=== PATIENT | male | born 1960 | race Caucasian/White ===

== ENCOUNTER → 2017-10-06 16:32 | Outpatient (REF) | payer BC, SELFPAY ==
[2017-10-06 22:09] LABS: Anion Gap 9.5 mmol/L (3-11); BUN 17 mg/dL (7-18); CO2 28.5 mmol/L (21.0-32.0); CREATININE 1.28 mg/dL (0.70-1.30); Calcium 8.7 mg/dL (8.5-10.1); Chloride 104 mmol/L (98-107); Estimated GFR 58.35 (mL/min/1.73m2); Glucose 82 mg/dL (70-100); Sodium 142 mmol/L (136-145); TSH (W/Ref FT4) 3.27 uIU/mL (0.358-3.74)
[2017-10-08 09:30] LABS: PSA, Screening 0.7 ng/ml (0-3.5)
== END ==
LOC: NCHCN 16:32
PROVIDERS: PCP Internal Medicine; Visit Provider Internal Medicine
DX: I10 Essential (primary) hypertension (principal); E03.9 Hypothyroidism, unspecified; K21.9 Gastro-esophageal reflux disease without esophagitis; Z12.5 Encounter for screening for malignant neoplasm of prostate; Z80.42 Family history of malignant neoplasm of prostate
CPT/HCPCS: 80048; 84153; 84443

== ENCOUNTER 2018-09-11 15:54 | Outpatient (REF) | payer BC, SELFPAY ==
[2018-09-11 21:57] LABS: Anion Gap 6.8 mmol/L (3-11); BUN 14 mg/dL (7-18); CO2 30.2 mmol/L (21.0-32.0); CREATININE 1.09 mg/dL (0.70-1.30); Calcium 8.7 mg/dL (8.5-10.1); Calculated LDL 91 mg/dL; Chloride 106 mmol/L (98-107); Cholesterol 158 mg/dL (50-200); Glucose 83 mg/dL (70-100); HDL Cholesterol 53 mg/dL (40-60); Potassium 4.6 mmol/L (3.5-5.1); Sodium 143 mmol/L (136-145); TSH 0.23 uIU/mL (0.358-3.74); Triglyceride 74 mg/dL (30-150)
== END 2018-09-11 16:14 ==
LOC: NCHCN 15:54
PROVIDERS: PCP Internal Medicine; Visit Provider Internal Medicine
DX: E03.9 Hypothyroidism, unspecified (principal); I10 Essential (primary) hypertension; K21.9 Gastro-esophageal reflux disease without esophagitis; Z80.42 Family history of malignant neoplasm of prostate
CPT/HCPCS: 80048; 80061; 83721; 84443

== ENCOUNTER 2019-06-21 09:29 | Outpatient (REF) | payer BC, SELFPAY | END 2019-06-21 09:49 | LOC: NCHCN 09:29 | PROVIDERS: PCP Internal Medicine; Visit Provider Internal Medicine | DX: E03.9 Hypothyroidism, unspecified (principal) | CPT/HCPCS: 84443 ==

== ENCOUNTER 2019-09-08 07:58 | Outpatient (REF) | payer OTHER, SELFPAY ==
[2019-09-08 22:05] LABS: Anion Gap 8.9 mmol/L (3-11); BUN 21 mg/dL (7-18); CO2 28.1 mmol/L (21.0-32.0); CREATININE 1.09 mg/dL (0.70-1.30); Calcium 8.7 mg/dL (8.5-10.1); Chloride 104 mmol/L (98-107); Glucose 99 mg/dL (74-106); Potassium 4.2 mmol/L (3.5-5.1); Sodium 141 mmol/L (136-145); TSH 3.58 uIU/mL (0.36-3.74)
[2019-09-10 09:21] LABS: PSA, Screening 0.7 ng/mL (0.0-3.5)
== END 2019-09-08 08:18 ==
LOC: NCHCN 07:58
PROVIDERS: PCP Internal Medicine; Visit Provider Internal Medicine
DX: I10 Essential (primary) hypertension (principal); E03.9 Hypothyroidism, unspecified; Z12.5 Encounter for screening for malignant neoplasm of prostate; Z80.42 Family history of malignant neoplasm of prostate
CPT/HCPCS: 80048; 84153; 84443

== ENCOUNTER 2020-07-14 08:38 | Outpatient (REF) | payer OTHER, SELFPAY ==
[2020-07-14 15:16] LABS: Anion Gap 6.6 mmol/L (3-11); BUN 20 mg/dL (7-18); CO2 30.4 mmol/L (21.0-32.0); CREATININE 1.2 mg/dL (0.70-1.30); Calcium 8.8 mg/dL (8.5-10.1); Calculated LDL 120 mg/dL (<100); Chloride 104 mmol/L (98-107); Cholesterol 190 mg/dL (<200); Glucose 90 mg/dL (74-106); HDL Cholesterol 52 mg/dL (40-60); Potassium 4.2 mmol/L (3.5-5.1); Sodium 141 mmol/L (136-145); TSH 2.52 uIU/mL (0.36-3.74); Triglyceride 93 mg/dL (<150)
[2020-07-14 21:34] LABS: PSA, Screening 0.7 ng/mL (0.0-3.5)
== END 2020-07-14 08:39 | disposition home or self-care (01) ==
LOC: NCHCN 08:38
PROVIDERS: PCP Internal Medicine; Visit Provider Internal Medicine
DX: I10 Essential (primary) hypertension (principal); Z13.220 Encounter for screening for lipoid disorders; Z12.5 Encounter for screening for malignant neoplasm of prostate
CPT/HCPCS: 80048; 80061; 84153; 84443

== ENCOUNTER 2021-07-11 14:40 | Outpatient (REF) | payer OTHER, SELFPAY ==
[2021-07-11 22:41] LABS: Anion Gap 5.9 mmol/L (3-11); BUN 15 mg/dL (7-18); CO2 32.1 mmol/L (21.0-32.0); CREATININE 1.2 mg/dL (0.70-1.30); Calcium 9.1 mg/dL (8.5-10.1); Calculated LDL 140 mg/dL (<100); Chloride 104 mmol/L (98-107); Cholesterol 222 mg/dL (<200); Glucose 81 mg/dL (74-106); HDL Cholesterol 55 mg/dL (40-60); Potassium 4.7 mmol/L (3.5-5.1); Sodium 142 mmol/L (136-145); TSH 8.76 uIU/mL (0.36-3.74); Triglyceride 136 mg/dL (<150)
== END 2021-07-11 14:41 | disposition home or self-care (01) ==
LOC: NCHCN 14:40
PROVIDERS: PCP Internal Medicine; Visit Provider Internal Medicine
DX: I10 Essential (primary) hypertension (principal); E03.9 Hypothyroidism, unspecified; Z13.220 Encounter for screening for lipoid disorders
CPT/HCPCS: 80048; 80061; 84443

== ENCOUNTER 2021-09-17 15:11 | Outpatient (REF) | payer OTHER, SELFPAY ==
[2021-09-17 21:59] LABS: TSH 0.62 uIU/mL (0.36-3.74)
== END 2021-09-17 15:12 | disposition home or self-care (01) ==
LOC: NCHCN 15:11
PROVIDERS: PCP Internal Medicine; Visit Provider Internal Medicine
DX: E03.9 Hypothyroidism, unspecified (principal)
CPT/HCPCS: 84443

== ENCOUNTER 2022-07-12 15:16 | Outpatient (REF) | payer OTHER, SELFPAY ==
[2022-07-12 21:10] LABS: Anion Gap 6.4 mmol/L (3-11); BUN 22 mg/dL (7-18); CO2 32.6 mmol/L (21.0-32.0); CREATININE 1.4 mg/dL (0.70-1.30); Calcium 8.8 mg/dL (8.5-10.1); Calculated LDL 95 mg/dL (<100); Chloride 103 mmol/L (98-107); Cholesterol 204 mg/dL (<200); Estimated GFR 57.54 (mL/min/1.73m2); Glucose 116 mg/dL (74-106); HDL Cholesterol 42 mg/dL (40-60); Potassium 4.1 mmol/L (3.5-5.1); Sodium 142 mmol/L (136-145); TSH 1.08 uIU/mL (0.36-3.74); Triglyceride 339 mg/dL (<150)
[2022-07-15 10:08] LABS: PSA, Screening 0.7 ng/mL (<=4.5)
== END 2022-07-12 15:17 | disposition home or self-care (01) ==
LOC: NCHCN 15:16
PROVIDERS: PCP Internal Medicine; Visit Provider Internal Medicine
DX: Z00.00 Encounter for general adult medical examination without abnormal findings (principal); E78.5 Hyperlipidemia, unspecified; E03.9 Hypothyroidism, unspecified; Z12.5 Encounter for screening for malignant neoplasm of prostate; I10 Essential (primary) hypertension
CPT/HCPCS: 80048; 80061; 84153; 84443

== ENCOUNTER 2023-07-30 10:18 | Outpatient (REF) | payer BC, SELFPAY ==
[2023-07-30 15:24] LABS: HCT 41.4 % (40.0-50.0); HGB 13.6 g/dL (13.5-17.5); MCH 27.6 pg (27.0-33.0); MCHC 32.9 % (32.0-36.0); MCV 84 fL (80-95); MPV 11.2 fL (8.0-11.0); Platelet Count 225 10^3/uL (130-400); RBC 4.93 10^6/uL (4.36-5.78); RDW 13.8 % (11.8-14.1); RDW-SD 42.5 fL; WBC 5.39 10^3/uL (4.4-10.8)
[2023-07-30 15:56] LABS: ALT 24 U/L (16-63); AST 15 U/L (15-37); Albumin 4.4 g/dL (3.4-5.0); Alkaline Phosphatase 72 U/L (46-116); Anion Gap 4.6 mmol/L (3-11); BUN 23 mg/dL (7-18); Bilirubin, Total 0.4 mg/dL (0.2-1.0); CO2 32.4 mmol/L (21.0-32.0); Calcium 9.3 mg/dL (8.5-10.1); Calculated LDL 56 mg/dL (<100); Chloride 108 mmol/L (98-107); Cholesterol 127 mg/dL (<200); Estimated GFR 85.63 (mL/min/1.73m2); Glucose 96 mg/dL (74-106); HDL Cholesterol 57 mg/dL (40-60); Potassium 4.6 mmol/L (3.5-5.1); Sodium 145 mmol/L (136-145); Total Protein 7.2 g/dL (6.4-8.2); Triglyceride 73 mg/dL (<150)
[2023-07-30 22:53] LABS: PSA, Screening 1.1 ng/mL (<=4.5)
== END 2023-07-30 10:19 | disposition home or self-care (01) ==
LOC: NCHCN 10:18
PROVIDERS: PCP Internal Medicine; Visit Provider Internal Medicine
DX: I10 Essential (primary) hypertension (principal); E78.5 Hyperlipidemia, unspecified; Z12.5 Encounter for screening for malignant neoplasm of prostate; Z80.42 Family history of malignant neoplasm of prostate
CPT/HCPCS: 80053; 80061; 84153; 85027

== ENCOUNTER 2023-08-06 12:19 | Outpatient (REF) | payer BC, SELFPAY ==
[2023-08-06 15:24] LABS: TSH 0.12 uIU/Ml (0.36-3.74)
== END 2023-08-06 12:20 | disposition home or self-care (01) ==
LOC: NCHCN 12:19
PROVIDERS: PCP Internal Medicine; Visit Provider Internal Medicine
DX: E03.9 Hypothyroidism, unspecified (principal)
CPT/HCPCS: 84443

== ENCOUNTER 2023-11-06 13:44 | Outpatient (REF) | payer BC, SELFPAY ==
[2023-11-06 23:19] LABS: TSH (W/Ref FT4) 4.57 uIU/mL (0.36-3.74)
[2023-11-06 23:37] LABS: FREE T4 1.08 ng/dL (0.76-1.46)
== END 2023-11-06 13:45 | disposition home or self-care (01) ==
LOC: NCHCN 13:44
PROVIDERS: PCP Internal Medicine; Visit Provider Internal Medicine
DX: E03.9 Hypothyroidism, unspecified (principal)
CPT/HCPCS: 84439; 84443

== ENCOUNTER 2023-12-15 15:05 | Outpatient (REF) | payer BC, SELFPAY ==
[2023-12-15 21:18] LABS: TSH 1.31 uIU/mL (0.36-3.74)
== END 2023-12-15 15:06 | disposition home or self-care (01) ==
LOC: NCHCN 15:05
PROVIDERS: PCP Internal Medicine; Visit Provider Internal Medicine
DX: E03.9 Hypothyroidism, unspecified (principal)
CPT/HCPCS: 84443

== ENCOUNTER 2024-08-11 22:46 | Outpatient (REF) | payer BC, SELFPAY ==
[2024-08-11 22:36] LABS: Anion Gap 5.4 mmol/L (3-11); BUN 17 mg/dL (7-18); CO2 32.6 mmol/L (21.0-32.0); CREATININE 1.3 mg/dL (0.70-1.30); Calcium 8.8 mg/dL (8.5-10.1); Chloride 104 mmol/L (98-107); Estimated GFR 62.11 (mL/min/1.73m2); Glucose 82 mg/dL (74-106); Potassium 4.1 mmol/L (3.5-5.1); Sodium 142 mmol/L (136-145); TSH 1.62 uIU/mL (0.36-3.74)
[2024-08-12 19:22] LABS: PSA, Screening 2.2 ng/mL (<=4.5)
== END 2024-08-11 22:47 | disposition home or self-care (01) ==
LOC: NCHCN 22:46
PROVIDERS: PCP Internal Medicine; Visit Provider Internal Medicine
DX: I10 Essential (primary) hypertension (principal); E03.9 Hypothyroidism, unspecified; Z12.5 Encounter for screening for malignant neoplasm of prostate
CPT/HCPCS: 80048; 84153; 84443

== ENCOUNTER 2025-02-09 11:50 | Outpatient (REF) | payer BC, SELFPAY ==
[2025-02-10 18:01] LABS: PSA, Screening 0.9 ng/mL (<=4.5)
== END 2025-02-09 11:51 | disposition home or self-care (01) ==
LOC: NCHCN 11:50
PROVIDERS: PCP Internal Medicine; Visit Provider Internal Medicine
DX: Z12.5 Encounter for screening for malignant neoplasm of prostate (principal)
CPT/HCPCS: 84153

== ENCOUNTER 2025-02-16 13:13 | Outpatient (REF) | payer BC, SELFPAY ==
[2025-02-16 23:00] LABS: Microalb ug/mg Crea 4.1 ug/mg Cr
== END 2025-02-16 13:14 | disposition home or self-care (01) ==
LOC: NCHCN 13:13
PROVIDERS: PCP Internal Medicine; Visit Provider Internal Medicine
DX: I10 Essential (primary) hypertension (principal)
CPT/HCPCS: 82043; 82570